=== PATIENT | male | born 1935 | race Caucasian/White ===

== ENCOUNTER → 2020-06-06 | Day surgery (SDC) | payer MEDICARE ==
[~2020-06-06] VITALS: Ht 170.2 cm; Wt 71.2 kg
[~2020-06-06] MED LIST: ACETAMINOPHEN325 MG PO; ALLOPURINOL 30300 MG PO; CERTAGEN1 EACH PO; CINNAMON500 MG PO; GLIPIZIDE ER2.5 MG PO; GLIPIZIDE XL2.5 MG PO; INDAPAMIDE2.5 MG PO; KLOR-CON 1010 MEQ PO; L-LYSINE500 M1 PO; L-LYSINE500 MG PO; LIPITOR10 MG PO; LISINOPRIL5 MG PO; LOZOL2.5 MG PO; METFORMIN HCL750 MG PO; MICRO-K10 MEQ PO; NORCO 5-325 TA1 EACH PO; ONDANSETRON ODT4 MG PO; PLAVIX75 MG PO; PREVAGEN PO
== END | disposition home or self-care (01) ==
LOC: FAS 07:41
DX: K57.30 Diverticulosis of large intestine without perforation or abscess without bleeding (principal); M10.9 Gout, unspecified; E11.9 Type 2 diabetes mellitus without complications; E78.00 Pure hypercholesterolemia, unspecified; I10 Essential (primary) hypertension; N40.0 Benign prostatic hyperplasia without lower urinary tract symptoms; R97.0 Elevated carcinoembryonic antigen [CEA]; Z86.73 Personal history of transient ischemic attack (TIA), and cerebral infarction without residual deficits; Z98.890 Other specified postprocedural states; Z93.3 Colostomy status; Z86.69 Personal history of other diseases of the nervous system and sense organs; Z87.442 Personal history of urinary calculi; Z85.46 Personal history of malignant neoplasm of prostate; Z78.9 Other specified health status; Z87.891 Personal history of nicotine dependence; Z90.49 Acquired absence of other specified parts of digestive tract; Z20.822 Contact with and (suspected) exposure to COVID-19; Z79.899 Other long term (current) drug therapy; Z79.84 Long term (current) use of oral hypoglycemic drugs; Z85.048 Personal history of other malignant neoplasm of rectum, rectosigmoid junction, and anus
CPT/HCPCS: 82962; J2704; J7120

== ENCOUNTER → 2020-08-29 | Day surgery (SDC) | payer MEDICARE ==
[~2020-08-29] MED LIST changes: -CERTAGEN1 EACH PO; +COMPAZINE10 MG PO; +DAILY VITAMIN1 EAC3 PO; +PEPCID AC20 MG PO; +PROTONIX 40MG T40 MG PO
== END | disposition home or self-care (01) ==
LOC: FAS 09:43
DX: I87.2 Venous insufficiency (chronic) (peripheral) (principal); C18.9 Malignant neoplasm of colon, unspecified; Z90.49 Acquired absence of other specified parts of digestive tract; Z79.899 Other long term (current) drug therapy; Z98.890 Other specified postprocedural states; Z20.822 Contact with and (suspected) exposure to COVID-19
CPT/HCPCS: 71045; 76000; C1788; J0690; J1644; J2405; J2704; J3010; J7120

== ENCOUNTER 2020-11-09 23:29 | Emergency (ER) | payer MEDICARE ==
[~2020-11-09 23:29] MED LIST changes: -COMPAZINE10 MG PO; -ONDANSETRON ODT4 MG PO; -PEPCID AC20 MG PO; -PROTONIX 40MG T40 MG PO
[2020-11-10 00:20] LABS: BASOPHIL 0.1 % (0-2); EOSINOPHIL 0.2 % (0-7); HCT 24.4 % (42.0-52.0); HGB 8.9 g/dl (13.2-18.0); LYMPHOCYTE 7.3 % (15-48); MCH 34.9 pg (25.0-31.0); MCHC 36.5 g/dL (32.0-36.0); MCV 95.7 fL (78.0-100.0); MONOCYTE 10.8 % (0-12); MPV 10.1 fL (6.0-9.5); NEUTROPHIL 81.1 % (41-80); NRBC 0; PLT 99 K/uL (150-400); RBC 2.55 M/uL (4.70-6.00); RDW 16.1 % (11.5-14.0); WBC 8.1 K/uL (4.0-10.5)
[2020-11-10 00:35] LABS: ALBUMIN 2.2 g/dL (3.4-5.0); BILIRUBIN - TOTAL 0.8 mg/dL (0.2-1.0); BUN/CREAT RATIO (CALC) 35.8 RATIO; CREATININE 1.37 mg/dL (0.67-1.17); GLOBULIN (CALCULATION) 3.1 g/dL; POTASSIUM 3.1 mmol/L (3.5-5.1); TOTAL PROTEIN 5.3 g/dL (6.4-8.2)
[2020-11-10 00:42] LABS: LACTIC ACID 1.8 mmol/L (0.4-1.9)
[2020-11-10] MEDS ORDERED: ONDANSETRON ODT4 MG PO (01:21)
[2020-11-10 01:31] LABS: BILIRUBIN NEGATIVE (NEGATIVE); BLOOD NEGATIVE Ery/uL (NEGATIVE); CLARITY CLEAR (CLEAR); COLOR YELLOW (YELLOW); GLUCOSE (U) NORMAL (NORMAL); LEUKOCYTES NEGATIVE Leu/uL (NEGATIVE); NITRITE NEGATIVE (NEGATIVE); PROTEIN 2+ mg/dL (NEGATIVE); UROBILINOGEN 0.2 mg/dL (0.2-1.0); pH 5.5 (5.0-9.0)
[2020-11-10 01:37] LABS: SQUAMOUS EPITHELIAL CELLS RARE
== END 2020-11-10 01:40 | disposition home or self-care (01) ==
LOC: FER 23:29
PROVIDERS: Emergency Medicine
DX: R11.2 Nausea with vomiting, unspecified (principal); E86.1 Hypovolemia; C18.9 Malignant neoplasm of colon, unspecified; C22.8 Malignant neoplasm of liver, primary, unspecified as to type; E11.9 Type 2 diabetes mellitus without complications; I10 Essential (primary) hypertension; Z79.899 Other long term (current) drug therapy
CPT/HCPCS: 36415; 74022; 80053; 81001; 83605; 83690; 85025; J2405; J7030

== ENCOUNTER 2020-11-25 11:57 | Day surgery (SDCO) | payer MEDICARE ==
[~2020-11-25] VITALS: Ht 170 cm; Wt 63.0 kg
[~2020-11-25 11:57] MED LIST changes: +ONDANSETRON ODT4 MG PO
[2020-11-25 13:02] LABS: BASOPHIL 0.2 % (0-2); EOSINOPHIL 0.1 % (0-7); HCT 17.6 % (42.0-52.0); LYMPHOCYTE 19.1 % (15-48); MCH 34.7 pg (25.0-31.0); MCHC 34.7 g/dL (32.0-36.0); MONOCYTE 6.1 % (0-12); MPV 9.6 fL (6.0-9.5); NRBC 0; PLT 161 K/uL (150-400); RBC 1.76 M/uL (4.70-6.00); RDW 17.9 % (11.5-14.0); WBC 8.2 K/uL (4.0-10.5)
[2020-11-25 13:11] LABS: HGB 6.1 g/dl (13.2-18.0)
[2020-11-25 13:14] LABS: BILIRUBIN NEGATIVE (NEGATIVE); BLOOD NEGATIVE Ery/uL (NEGATIVE); CLARITY CLEAR (CLEAR); COLOR YELLOW (YELLOW); GLUCOSE (U) NORMAL (NORMAL); LEUKOCYTES NEGATIVE Leu/uL (NEGATIVE); NITRITE NEGATIVE (NEGATIVE); PROTEIN TRACE (LOW) mg/dL (NEGATIVE); SPECIFIC GRAVITY 1.015 (1.001-1.030); UROBILINOGEN 0.2 mg/dL (0.2-1.0)
[2020-11-25 13:21] LABS: ALBUMIN 1.5 g/dL (3.4-5.0); BILIRUBIN - TOTAL 0.4 mg/dL (0.2-1.0); BUN/CREAT RATIO (CALC) 26.4 RATIO; CREATININE 1.29 mg/dL (0.67-1.17); GLOBULIN (CALCULATION) 2.7 g/dL; POTASSIUM 3.7 mmol/L (3.5-5.1); TOTAL PROTEIN 4.2 g/dL (6.4-8.2)
[2020-11-25 13:23] LABS: BACTERIA 1+; MUCOUS MODERATE
[2020-11-25 13:24] LABS: LACTIC ACID 0.7 mmol/L (0.4-1.9)
[2020-11-25 14:05] LABS: RETICULOCYTE COUNT 5.2 % (1.0-2.0)
[2020-11-25 14:12] LABS: IRON % SATURATION 14.1 %SAT (20-50)
[2020-11-25] MEDS ORDERED: KLOR-CON 1010 MEQ PO (16:00)
[2020-11-25] MEDS ORDERED: GLIPIZIDE ER2.5 MG PO (16:01)
[2020-11-25] MEDS ORDERED: COMPAZINE10 MG PO (16:02)
[2020-11-25] MEDS ORDERED: PEPCID AC20 MG PO (16:11)
[2020-11-25 20:00] LABS: HCT 22.9 % (42.0-52.0); HGB 7.7 g/dL (13.2-18.0)
[2020-11-26 06:33] LABS: BASOPHIL 0.6 % (0-2); EOSINOPHIL 0.6 % (0-7); HCT 21.2 % (42.0-52.0); HGB 7.1 g/dl (13.2-18.0); LYMPHOCYTE 26.5 % (15-48); MCHC 33.5 g/dL (32.0-36.0); MONOCYTE 8.7 % (0-12); MPV 9.3 fL (6.0-9.5); NEUTROPHIL 61.9 % (41-80); NRBC 0; PLT 135 K/uL (150-400); RBC 2.31 M/uL (4.70-6.00); RDW 22.5 % (11.5-14.0); WBC 5.3 K/uL (4.0-10.5)
[2020-11-26 06:51] LABS: BUN/CREAT RATIO (CALC) 20.6 RATIO; CREATININE 1.31 mg/dL (0.67-1.17); POTASSIUM 3.7 mmol/L (3.5-5.1)
[2020-11-26 07:05] LABS: MCH 30.7 pg (25.0-31.0); MCV 91.8 fL (78.0-100.0)
[2020-11-27 06:22] LABS: BASOPHIL 0.4 % (0-2); EOSINOPHIL 0.4 % (0-7); HCT 25.5 % (42.0-52.0); HGB 8.8 g/dl (13.2-18.0); LYMPHOCYTE 27.8 % (15-48); MCH 30.8 pg (25.0-31.0); MCHC 34.5 g/dL (32.0-36.0); MCV 89.2 fL (78.0-100.0); MONOCYTE 9.8 % (0-12); MPV 9.7 fL (6.0-9.5); NEUTROPHIL 58.5 % (41-80); NRBC 0; PLT 118 K/uL (150-400); RBC 2.86 M/uL (4.70-6.00); RDW 20.3 % (11.5-14.0); WBC 4.5 K/uL (4.0-10.5)
[2020-11-27 06:34] LABS: BUN/CREAT RATIO (CALC) 19.8 RATIO; CREATININE 1.11 mg/dL (0.67-1.17); POTASSIUM 3.4 mmol/L (3.5-5.1)
[2020-11-28 06:23] LABS: BASOPHIL 0.4 % (0-2); EOSINOPHIL 0.4 % (0-7); HCT 27.9 % (42.0-52.0); HGB 9.5 g/dl (13.2-18.0); LYMPHOCYTE 21.6 % (15-48); MCH 30.8 pg (25.0-31.0); MCHC 34.1 g/dL (32.0-36.0); MCV 90.6 fL (78.0-100.0); MONOCYTE 9.2 % (0-12); MPV 9.7 fL (6.0-9.5); NEUTROPHIL 67.1 % (41-80); NRBC 0; PLT 128 K/uL (150-400); RBC 3.08 M/uL (4.70-6.00); RDW 19.9 % (11.5-14.0); WBC 5.4 K/uL (4.0-10.5)
[2020-11-28 06:48] LABS: BUN/CREAT RATIO (CALC) 14.4 RATIO; CREATININE 1.11 mg/dL (0.67-1.17)
[2020-11-28] MEDS ORDERED: PROTONIX 40MG T40 MG PO (08:06)
--- NOTE | 2020-11-28 11:20 | NUR ---
MET WITH SPOUSE AND PT. PT IS CURRENT WITH [employer] . HE HAS A ROLLING WALKER, WC, AND 07/03. PT. SPOUSE SIGNED CHOICE FORM. SUBMITTED REFERAL THROUGH [facility].
== END 2020-11-28 14:08 | disposition home or self-care (01) ==
LOC: FER 11:57 → FMS 13:54
PROVIDERS: Emergency Medicine; Internal Medicine; Nurse Practitioner; ADMIT Allergy & Immunology Allergy
DX: K29.80 Duodenitis without bleeding (principal); K31.9 Disease of stomach and duodenum, unspecified; K22.10 Ulcer of esophagus without bleeding; K29.70 Gastritis, unspecified, without bleeding; D50.9 Iron deficiency anemia, unspecified; C18.9 Malignant neoplasm of colon, unspecified; C78.7 Secondary malignant neoplasm of liver and intrahepatic bile duct; I10 Essential (primary) hypertension; E11.9 Type 2 diabetes mellitus without complications; R10.9 Unspecified abdominal pain; M10.9 Gout, unspecified; N40.0 Benign prostatic hyperplasia without lower urinary tract symptoms; Z79.84 Long term (current) use of oral hypoglycemic drugs; Z79.899 Other long term (current) drug therapy; Z20.822 Contact with and (suspected) exposure to COVID-19; Z86.73 Personal history of transient ischemic attack (TIA), and cerebral infarction without residual deficits; Z90.89 Acquired absence of other organs; Z87.891 Personal history of nicotine dependence
CPT/HCPCS: 36415; 36430; 80048; 80053; 81001; 82607; 82728; 82746; 82962; 83540; 83550; 83605; 84145; 84484; 85014; 85018; 85025; 86850; 86900; 86901; 86922; 87040; 87088; 88305; 93005; C9113; G0378; J1642; J2704; J2916; J7030; J7120; P9016; U0002

== ENCOUNTER 2021-07-26 16:33 | Emergency (ER) | payer MEDICARE ==
[~2021-07-26 16:33] MED LIST changes: +COMPAZINE10 MG PO; +PEPCID AC20 MG PO; +PROTONIX 40MG T40 MG PO
[2021-07-26 17:52] LABS: BASOPHIL 0.2 % (0-2); EOSINOPHIL 0.4 % (0-7); HCT 31.5 % (42.0-52.0); LYMPHOCYTE 9.3 % (15-48); MCH 34.1 pg (25.0-31.0); MCHC 34.9 g/dL (32.0-36.0); MCV 97.5 fL (78.0-100.0); MONOCYTE 5.8 % (0-12); MPV 9.3 fL (6.0-9.5); NEUTROPHIL 83.7 % (41-80); NRBC 0; PLT 113 K/uL (150-400); RBC 3.23 M/uL (4.70-6.00); RDW 12.8 % (11.5-14.0); WBC 13.7 K/uL (4.0-10.5)
[2021-07-26 18:05] LABS: ALBUMIN 3.6 g/dL (3.4-5.0); BILIRUBIN - TOTAL 0.9 mg/dL (0.2-1.0); BUN/CREAT RATIO (CALC) 19.4 RATIO; CREATININE 1.7 mg/dL (0.67-1.17); GLOBULIN (CALCULATION) 3.3 g/dL; POTASSIUM 4.5 mmol/L (3.5-5.1); TOTAL PROTEIN 6.9 g/dL (6.4-8.2)
[2021-07-26 20:09] LABS: BILIRUBIN NEGATIVE (NEGATIVE); BLOOD 1+ Ery/uL (NEGATIVE); CLARITY CLEAR (CLEAR); COLOR YELLOW (YELLOW); GLUCOSE (U) NORMAL (NORMAL); LEUKOCYTES NEGATIVE Leu/uL (NEGATIVE); NITRITE NEGATIVE (NEGATIVE); PROTEIN 2+ mg/dL (NEGATIVE); SPECIFIC GRAVITY 1.025 (1.001-1.030); UROBILINOGEN 0.2 mg/dL (0.2-1.0); pH 6.5 (5.0-9.0)
[2021-07-26 20:26] LABS: TRANSITIONAL EPITHELIAL CELLS RARE
== END 2021-07-26 20:13 | disposition other institution (70) ==
LOC: FER 16:33
PROVIDERS: Emergency Medicine
DX: S37.011A Minor contusion of right kidney, initial encounter (principal); S80.211A Abrasion, right knee, initial encounter; W01.0XXA Fall on same level from slipping, tripping and stumbling without subsequent striking against object, initial encounter
CPT/HCPCS: 36415; 71045; 72131; 80053; 81001; 83690; 84484; 85025; 93005; 96374; J2270; J2405; J7030